=== PATIENT | male | born 1965 | race Caucasian/White ===

== ENCOUNTER 2016-11-12 08:19 | Observation (INO) ==
[2016-11-12] MEDS ORDERED: Aspirin 81 MG TAB.CHEW PO STA (08:27)
--- NOTE | 2016-11-12 08:29 | Emergency Department Note ---
Disposition Clinical Impression: Chest pain Qualifiers: Chest pain type: unspecified Qualified Code(s): R07.9 - Chest pain, unspecified Disposition: Admitted As Inpatient Condition: Undetermined Referrals: NO,PCP [Non-Partnered Physician] - Forms: ED Satisfaction Letter Time of Disposition: 09:29 Chest Pain HPI - General Chief Complaint: ED Chest Pain Stated Complaint: Chest Pain Time Seen by Provider: 11/12/16 08:21 Source: patient Mode of arrival: ambulatory Limitations: no limitations Vital Signs Reviewed: Yes Nursing Notes Reviewed: Yes - History of Present Illness HPI Narrative: 51-year-old male with history of hyperlipidemia, smoking history, family history of [place], arrives [facility] emergency department complaining of left-sided chest pain without radiation that began roughly 4:30 this morning. The patient states he had mild dyspnea associated with it. The patient states he did not think much of it but the pain had continued. The patient decided to come into the emergency department for further evaluation. The patient denies any previous history of cardiac disease, previous stent or catheterization, previous stress test. The patient states that he has been taking his atorvastatin as prescribed. The patient denies any other complaints at this time including abdominal pain, nausea, vomiting, fever, chills, unilateral leg swelling, recent surgeries, recent immobilizations. Pt complaint: chest pain Onset (ago): hour(s) (4) Time: 04:30 Duration: intermittent Onset: during rest Pain Location: left chest Severity: moderate Severity scale (1-10): 6 Quality: tightness Pain Radiation: none Improves with: nothing Worsens with: nothing Associated symptoms: Reports: dyspnea Treatments prior to arrival chest pain: none - Related Data On Oral Contraceptives: No Home Medications Medication Instructions Recorded Confirmed Lansoprazole [Prevacid] 30 mg PO DAILY 01/31/16 11/12/16 OxyCODONE/APAP 5/325 [Percocet 1 tab PO Q6HR PRN 01/31/16 11/12/16 5/325 MG] Simvastatin [Zocor] 40 mg PO DAILY 01/31/16 11/12/16 Ubidecarenone/Vit E Acetate [Co 100 mg PO DAILY 11/12/16 11/12/16 Q-10 100 mg Softgel] Vitamin B Complex Vit C No.4 1 tab PO DAILY 06/19/17 06/19/17 [Super B Complex] Allergies Allergy/AdvReac Type Severity Reaction Status Date / Time No Known Allergies Allergy Verified 11/12/16 08:33 All systems ED: reviewed and negative except as stated. Constitutional: Denies: fever, chills, weakness, weight change Cardiovascular: Reports: chest pain. Denies: palpitations, dyspnea on exertion , edema, syncope Respiratory: Reports: dyspnea. Denies: cough, wheezes, hemoptysis, stridor, sputum production Gastrointestinal: Denies: abdominal pain, nausea, vomiting, diarrhea, constipation, hematemesis, melena, hematochezia Musculoskeletal: Denies: back pain, neck pain, arthralgia, myalgia Integumentary: Denies: rash, abrasion, lesions Neurological: Denies: headache, weakness, numbness, paresthesias, confusion, abnormal gait, vertigo Chest Pain PMH - Past Medical History Medical history: Reports: arthritis (Osteoarthritis-knees), GERD, hyperlipidemia , thyroid disease (Hyperthyroidism), other (Tobacco Use Disorder; Impotence; Chronic Back Pain; Peripheral Vascular Disease; Blood clot in brain 1987; Hyperhydrosis) Surgical history: Reports: non-contributory Psychiatric history: Reports: depression, prior suicide attempt, other (Alcohol Abuse; Marijuana use) - Social History Smoking Status: Current every day smoker Alcohol use: Reports: none Drug use: Reports: unknown Physical Exam - General Limitations: no limitations General appearance: alert, in no apparent distress - Chest Chest inspection: Present: normal inspection, symmetric chest wall rise - Respiratory Respiratory exam: Present: normal lung sounds bilaterally - Cardiovascular Cardiovascular exam: Present: regular rate, normal rhythm, normal heart sounds - Abdominal Exam Abdominal exam: Present: soft, Non-Tender. Absent: tenderness, distention, guarding, rebound, rigidity - Extremities Exam Extremities exam: Present: normal inspection, full ROM. Absent: tenderness, pedal edema - Back Exam Back exam: Present: normal inspection, full ROM. Absent: tenderness - Neurological Exam Neurological exam: Present: alert, oriented X3 - Skin Skin exam: Present: warm, dry, intact, normal color Course Vital Signs Temperature 98.3 F 11/12/16 08:22 Pulse Rate 84 11/12/16 08:22 Respiratory Rate 18 11/12/16 08:22 Blood Pressure 134/87 11/12/16 08:22 O2 Sat by Pulse Oximetry 96 11/12/16 08:22 Temperature 98.3 F 11/12/16 08:22 Pulse Rate 71 11/12/16 09:24 Respiratory Rate 16 11/12/16 09:24 Blood Pressure 106/64 11/12/16 09:24 O2 Sat by Pulse Oximetry 98 11/12/16 09:24 Oxygen Delivery Oxygen Delivery Room Air Chest Pain - MDM Narrative Medical decision making narrative: I examined this patient and my medical decision-making was reviewed with the [facility] [employer]/PA/Advanced Practice Nurse/Resident Physician. I agree with the documented findings, disposition and treatment plan as described except to the extent set forth below. Patient was seen and evaluated by Dr. Silveira and myself , I agree with his evaluation and management plan, supervise care the patient had stated. Patient started having chest pain about 4:30 this morning that woke him up. Left-sided no radiation. Multiple risk factors for heart disease but as far as he knows he has never had coronary disease in the past. Rest see if we can make him more comfortable, a cardiac workup and most likely admission. He is in agreement with this plan. Chest X-Ray 11/12/16 08:26 IMPRESSION: No acute process. D/ / Dottie Calvillo MD / Dottie Calvillo MD Interpreting Provider: Dottie Calvillo MD 0904: Workup here in the emergency department demonstrates no acute process. Given the patient's age and medical history a combined with the fact that he never has received any stress test or cardiac workup we will admit the patient to the hospitalist for further troponin trending as well as likely stress test. The patient does have a heart score 3 but given the patient's previous medical history and lack of workup we will continue along the admission pathway. Patient agrees to the plan. 0908 hrs.: Planning on bring him into the hospital and for further workup. He is in agreement with plan. 0929: Accepted by Dr. Merchant. - Medical Records Medical records reviewed: Yes I reviewed the patient's medical records. - Lab Data Lab results reviewed: Yes I reviewed the patient's lab results. Result diagrams: 11/12/16 08:30 11/12/16 08:30 Lab Results 11/12/16 11/12/1617 Range/Units 08:30 08:30 08:30 WBC 8.5 (4.3-11.1) K/mcL RBC 5.58 H (4.19-5.50) M/mcL Hgb 16.2 (12.9-16.9) g/dL Hct 48.8 (37.5-50.1) % MCV 87.5 (83.0-100.0) fL MCH 29.0 (28.0-33.3) pg MCHC 33.2 (31.6-35.5) g/dL RDW 12.7 (11.5-14.5) % Plt Count 248 (140-400) K/mcL MPV 10.5 (9.4-12.4) fL Immature Gran % 0.4 (0-4) % Seg Neutrophils % 54.0 % Lymphocytes % 38.0 % Monocytes % 4.4 % Eosinophils % 2.8 % Basophils % 0.4 % Neutrophils # 4.6 (1.6-8.9) K/mcL Lymphocytes # 3.2 (0.6-4.6) K/mcL Monocytes # 0.4 (0.0-1.3) K/mcL Eosinophils # 0.2 (0.0-0.6) K/mcL Basophils # 0.0 (0.0-0.2) K/mcL Immature Plt Fraction 6.8 H (1.1-6.1) % Sodium 141 (136-145) mEq/L Potassium 4.3 (3.5-4.5) mEq/L Chloride 106 (98-109) mEq/L Carbon Dioxide 27 (19-29) mEq/L BUN 8 (8-26) mg/dL Creatinine 0.83 (0.72-1.25) mg/dL Est GFR ( Amer) > 60 (> 60) Est GFR (Non-Af Amer) > 60 (> 60) BUN/Creatinine Ratio 10 (6-26) Glucose 125 H (70-99) mg/dL Calculated Osmolality 292 (280-300) Calcium 9.8 (8.6-10.8) mg/dL Troponin I 0.00 (0-0.03) ng/mL - Radiology Data Radiology results reviewed: Yes I reviewed the patient's radiology results. - EKG Data EKG attestation: Yes I reviewed and interpreted this EKG. EKG results narrative: Heart rate 84 bpm. [place] interval 153 ms. QTc 383 ms. Normal axis. Normal sinus rhythm. No ST elevation or ST depression noted. EKG similar to EKG from 06/13/2010. No acute changes noted. Heart Score - Score History: Moderately Suspicious EKG: Normal Age: 45-65 Risk Factors: 1-2 risk factors Troponin: Less than normal limit HEART Score Total: 3
[2016-11-12] MEDS: Nitroglycerin 0.4 MG TAB.SUBL SL PRN ×3 (08:36→08:48)
[2016-11-12 08:39] LABS: Basophils % 0.4 %; Eosinophils # 0.2 K/mcL (0.0-0.6); Eosinophils % 2.8 %; Hematocrit 48.8 % (37.5-50.1); Hemoglobin 16.2 g/dL (12.9-16.9); Immature Granulocytes % 0.4 % (0-4); Immature Platelets 6.8 % (1.1-6.1); Lymphocytes # 3.2 K/mcL (0.6-4.6); Mean Corpuscular HGB Conc 33.2 g/dL (31.6-35.5); Mean Corpuscular Volume 87.5 fL (83.0-100.0); Mean Platelet Volume 10.5 fL (9.4-12.4); Monocytes # 0.4 K/mcL (0.0-1.3); Monocytes % 4.4 %; Neutrophils # 4.6 K/mcL (1.6-8.9); Platelet Count 248 K/mcL (140-400); Red Blood Count 5.58 M/mcL (4.19-5.50); Red Cell Distribution Width 12.7 % (11.5-14.5)
[2016-11-12 08:55] LABS: BUN/Creatinine Ratio 10 (6-26); Blood Urea Nitrogen 8 mg/dL (8-26); Calcium 9.8 mg/dL (8.6-10.8); Carbon Dioxide 27 mEq/L (19-29); Chloride 106 mEq/L (98-109); Glucose 125 mg/dL (70-99); Osmolality,Calculated 292 (280-300); Potassium 4.3 mEq/L (3.5-4.5); Sodium 141 mEq/L (136-145); eGFR For African Americans > 60 (> 60); eGFR For Non-African Americans > 60 (> 60)
[2016-11-12] MEDS ORDERED: *HR* OxyCODONE/APAP 5/325 TABLET PO PRN (12:55)
[2016-11-12] MEDS ORDERED: Naloxone 0.4 MG/ML INJ IVP PRN (12:57)
[2016-11-12] MEDS ORDERED: Acetaminophen 325 MG TABLET PO PRN (12:57)
[2016-11-12] MEDS ORDERED: Ondansetron 4 MG/2 ML VIAL IVP PRN (12:57)
--- NOTE | 2016-11-12 19:50 | Internal Med History&Physical ---
Date of Encounter: 11/12/16 Time of Encounter: 14:00 Assessment and Plan (1) Dyslipidemia Current visit: Yes Status: Acute Continue with Lipitor. Cardiac diet. Check lipid panel in the morning. (2) Precordial chest pain Current visit: Yes Status: Acute Patient reports chest pain with typical features, his pain has completely resolved now. He has been chest pain-free since admission. We will monitor on telemetry, trend troponin. Obtain echocardiogram. If he rules out for ACS we will obtain stress test in the morning. (3) Tobacco abuse Current visit: Yes Status: Acute I have advised smoking cessation and provided counseling. Internal Medicine - H&P: HPI Chief complaint: Chest pain Admitted From: Emergency Dept Plans for Post Hospital Care: Home History of present illness: Mr. Figueroa is a 51 year old male with past medical history significant for hyperlipidemia and tobacco abuse who presented to the hospital for evaluation of chest pain which started at 4:00 in the morning, woke him up from sleep, was located in the precordial area, severe in intensity and felt like pressure. It lasted until he came to the hospital and he received nitroglycerin which helped relieve the pain. He reports associated mild shortness of breath. A 10 point review of systems was negative. Family history positive for premature coronary artery disease in the patient's father Past Med Surg Social Fam HX - Past Medical History Medical history: arthritis (Osteoarthritis-knees), GERD, hyperlipidemia, thyroid disease (Hyperthyroidism), other (Tobacco Use Disorder; Impotence; Chronic Back Pain; Peripheral Vascular Disease; Blood clot in brain 1987; Hyperhydrosis) Psychiatric history: depression, prior suicide attempt, other (Alcohol Abuse; Marijuana use) - Past Surgical History Surgical History: non-contributory - Social History Smoking Status: Current every day smoker Packs per day: 1 Smokeless Tobacco Status: No Alcohol use: none Drug use: unknown Internal Medicine - H&P: Meds Lansoprazole [Prevacid] 30 mg PO DAILY 01/31/16 [History] OxyCODONE/APAP 5/325 [Percocet 5/325 MG] 1 tab PO Q6HR PRN 01/31/16 [History] Simvastatin [Zocor] 40 mg PO DAILY 01/31/16 [History] Ubidecarenone/Vit E Acetate [Co Q-10 100 mg Softgel] 100 mg PO DAILY 11/12/16 [ History] Vitamin B Complex Vit C No.4 [Super B Complex] 1 tab PO DAILY 11/12/16 [History] Allergies No Known Allergies Allergy (Verified 11/12/16 08:33) All Systems PM: A 10-system review of systems was performed and is negative for pertinent findings except as documented above in the HPI. - Constitutional Vitals: Temp Pulse Resp BP Pulse Ox 97.9 F 64 15 100/60 95 11/12/16 19:33 11/12/16 19:33 11/12/16 19:33 11/12/16 19:33 11/12/16 19:33 General appearance: Present: A&O X 3 - Eye Eye exam: Present: PERRL, conjuntiva pink, sclera anicteric Pupils: Present: PERRL - Respiratory Respiratory exam: Present: CTAB. Absent: accessory muscle use, rales, rhonchi, wheezes - Cardiovascular Cardiovascular exam: Present: RRR, +S1, +S2. Absent: diastolic murmur, gallop, rubs, systolic murmur - GI/Abdominal GI/Abdominal exam: Present: normal bowel sounds, soft, no peritoneal signs. Absent: distended, tenderness - Extremities Exam Extremities exam: Present: warm, radial pulses palpable and symetrical. Absent : calf tenderness, cyanotic, pedal edema - Neurological Exam Neurological exam: Present: CN II-XII intact, oriented X3, no focal deficits. Absent: pronater drift, facial droop, speech deficit - Skin Skin exam: Present: dry, intact Internal Med - H&P Results - Labs CBC & Chem 7: 11/12/16 08:30 11/12/16 08:30 Labs: Cardiac Enzymes 11/12/16 Range/Units 14:53 Troponin I 0.00 (0-0.03) ng/mL - EKG Data -: EKG Interpreted by Myself EKG shows normal: sinus rhythm
[2016-11-13 04:27] LABS: Basophils % 0.4 %; Eosinophils # 0.3 K/mcL (0.0-0.6); Eosinophils % 3.9 %; Hematocrit 46.6 % (37.5-50.1); Hemoglobin 15.1 g/dL (12.9-16.9); Immature Granulocytes % 0.2 % (0-4); Lymphocytes # 3.3 K/mcL (0.6-4.6); Lymphocytes % 38.6 %; Mean Corpuscular HGB Conc 32.4 g/dL (31.6-35.5); Mean Corpuscular Hemoglobin 28.6 pg (28.0-33.3); Mean Corpuscular Volume 88.3 fL (83.0-100.0); Monocytes # 0.5 K/mcL (0.0-1.3); Monocytes % 5.6 %; Neutrophils # 4.3 K/mcL (1.6-8.9); Platelet Count 240 K/mcL (140-400); Red Blood Count 5.28 M/mcL (4.19-5.50); Segmented Neutrophils % 51.3 %
[2016-11-13 04:49] LABS: BUN/Creatinine Ratio 12 (6-26); Blood Urea Nitrogen 10 mg/dL (8-26); Calcium 9.1 mg/dL (8.6-10.8); Carbon Dioxide 28 mEq/L (19-29); Chloride 105 mEq/L (98-109); Chol/HDL Ratio 6.1 (0-4.9); Cholesterol 212 mg/dL (< 200); Glucose 102 mg/dL (70-99); HDL Cholesterol 35 mg/dL (40-59); LDL Cholesterol,Calculated 126 mg/dL (0-99); Magnesium 2.1 mg/dL (1.6-2.6); Osmolality,Calculated 287 (280-300); Potassium 4.3 mEq/L (3.5-4.5); Sodium 139 mEq/L (136-145); Triglycerides 254 mg/dL (< 150); eGFR For African Americans > 60 (> 60); eGFR For Non-African Americans > 60 (> 60)
[2016-11-13] MEDS ORDERED: Regadenoson 0.4 MG/5 ML SYRINGE IVP ONE (06:22)
[2016-11-13 11:41] VITALS: BP 118/70
--- NOTE | 2016-11-13 13:25 | Nuclear Medicine Stress Report ---
Exercise Nuclear Stress Name: Harsha Figueroa Date of Study: 11/13/2016 Date: 1965 Ht: 71.0 in Medical Record#: [id number] Age: 51 Wt: 207.0 lb Gender: Male Order #: [id number] Location: [facility] IP Room: [facility] Supervising Provider: Darren Montanez CNP Reading Physician: Deonte Gustafson MD, [facility] Ordering Physician: Rohini Martinez CNP Primary Care Physician: Rizwan Posey DO Stress Technologist: Saul Miller, [employer], [facility] Portainer Operator: Jalen Camarillo Indications: Chest Pain Impression: The exercise capacity was good. Exercise ECG is negative for ischemia. Gated LVEF > 70%. Perfusion imaging was negative for ischemia or infarct. History: Hypercholesteremia History of Smoking Stress Test Summary: Stress Test Type: Treadmill Protocol: Archie Baseline Information: Initial Heart Rate: 82 Blood Pressure: 112/82 Stress Information: Stress Time: 11 min 12 sec Test Terminated Due to (primary): Dyspnea Maximum Blood Pressure: 148/72 Maximum Heart Rate: 145 Percent Maximum Heart Rate Achieved: 85 Double Product: 14838 METS Reached: 12.8 Symptoms: Shortness of breath, Fatigue Nuclear Summary: SPECT myocardial perfusion imaging using Tc99m Sestamibi given intravenously was performed at rest and following cardiac stress testing. The resting images were obtained following initial dose of 11.8 mCi. Following stress an additional dose of 34.3 mCi was given at peak exercise or 30 seconds post regadenoson infusion. Findings: Stress Note * Resting ECG demonstrated normal sinus rhythm. * No baseline arrhythmias were noted. * The exercise capacity was good. * Patient had no chest pain during stress. * No arrhythmias were noted during stress. * Exercise ECG is negative for ischemia. Hemodynamic responses * Normal hemodynamic responses to exercise. Study Quality * Study quality is average. Gated EF > 70% * Gated LVEF > 70%. Left Ventricle * The left ventricle is not dilated. * Normal Segmental Perfusion in rest. * Normal segmental perfusion in stress. TID * No evidence of transient ischemic dilatation. Updated by Deonte Gustafson MD, [facility] on 11/13/2016 1:20:05 PM electronically signed on 11/13/2016 1:20:28 PM with status of Final
--- NOTE | 2016-11-13 13:58 | Discharge Summary ---
Date of Encounter: 11/13/16 Time of Encounter: 09:00 - Discharge Diagnosis (1) Chest pain Priority: Primary Status: Acute Comments: Patient reports substernal chest pressure that awakened him at 4 AM yesterday morning. He said it continued until he arrived at the emergency room is giving nitroglycerin, states that it lasted about 4 hours. He denies any nausea, vomiting, diaphoresis, radiation. He said that it was constant. He denies shortness of breath. He has not had chest pain since he was in the emergency department. Troponins were negative 3. Stress test today showed gated LVEF greater than 70% and perfusion imaging was negative for ischemia or infarct. Patient also had an echocardiogram today showed normal systolic function with LVEF of 60-65%, normal diastolic function and normal RV size and function. Patient has risk factors of smoking and hyperlipidemia. He is not interested in smoking cessation, and is on the highest recommended dose of simvastatin. Patient will follow up with primary care. Qualifiers: Chest pain type: unspecified Qualified Code(s): R07.9 - Chest pain, unspecified (2) Dyslipidemia Priority: Secondary Status: Chronic Comments: Chronic. Continue with simvastatin. Follow-up with primary care for further evaluation. He has not interested in lifestyle changes. (3) Precordial chest pain Priority: Secondary Status: Acute Comments: Plan as above (4) Tobacco abuse Priority: Secondary Status: Chronic Comments: Patient was not interested in discussing smoking cessation tools or methods. He says he will quit when he is ready. - Discharge Medications Home Medications: Lansoprazole [Prevacid] 30 mg PO DAILY 01/31/16 [History] OxyCODONE/APAP 5/325 [Percocet 5/325 MG] 1 tab PO Q6HR PRN 01/31/16 [History] Simvastatin [Zocor] 40 mg PO DAILY 01/31/16 [History] Ubidecarenone/Vit E Acetate [Co Q-10 100 mg Softgel] 100 mg PO DAILY 11/12/16 [ History] Vitamin B Complex Vit C No.4 [Super B Complex] 1 tab PO DAILY 11/12/16 [History] Allergies/Adverse Reactions: Allergies No Known Allergies Allergy (Verified 11/12/16 08:33) Procedures/tests Complete & Pending: Procedures Performed prior 72 hours Category Date Time Status NM aubree perf SPECT multi [NM] Routine Exams 11/12/16 18:08 Taken EV echocardiogram Routine Y 11/13/16 18:07 Completed SP exercise nuclear stress Routine Y 11/12/16 18:07 Completed Date of admission: 11/12/16 09:36 Primary care physician: Lisa Musa Discharging clinician: Erika Davis Anticipated date of discharge: 11/13/16 - Patient Status Disposition: Home, Self-Care Condition: Good Functional capacity at discharge: independent ambulation Overall status at discharge: patient is back to baseline - Discharge Instructions Follow Up With: Rizwan Posey, [Primary Care Provider] - 11/19/16 10:00 am Additional Instructions: Resume your normal home medications Please follow-up with your primary care physician regarding your lipid panel. Consider smoking cessation. If you change your mind prior to discharge I will be happy to write you a prescription. Please return to the emergency department if you have any new or concerning symptoms, or if your chest pain returns. - Diet and Activity Activity: increase activity as tolerated Diet: advance to your usual diet Interval History: Mr. Figueroa is a 51-year-old male with prior history of tobacco abuse and hyperlipidemia. Patient reports substernal chest pressure without radiation, shortness of breath, nausea, vomiting that awakened him from sleep at 4 AM yesterday. He said it was constant and that it lasted until he was given nitroglycerin in the emergency department. He said that timeframe is about 4 hours. He has not had any chest pain since that time. Pain is not reproducible with palpation or inspiration. Echocardiogram done today showed normal systolic function, LVEF 60-65%, normal diastolic dysfunction and normal RV size and function. There is no evidence of pulmonary hypertension or valvular dysfunction. He also had a stress test today with the gated LVEF of greater than 70%. Perfusion imaging was negative for ischemia or infarct. His chest x-ray was negative for any acute processes. Troponin was negative 3. Patient is not interested in smoking cessation. He says he will stop smoking when he is ready. His lipid panel is significantly elevated. He was fasting. Patient reports that he had labs done 3 months ago and "everything was fine". There has been a significant change in labs. Continued follow-up and repeat lab is recommended. Patient has been pain-free. He is anxious to go. His labs and vital signs have been within normal limits, other than lipid panel. Patient is stable and ready for discharge. Hospital course: Mr. Figueroa is a 51 year old male - Time Spent with Patient Total time spent providing and/or coordinating discharge services: Less than 30 minutes - Constitutional Vitals: Temp Pulse Resp BP Pulse Ox 98.0 F 63 15 118/70 97 11/13/16 11:40 11/13/16 11:40 11/13/16 11:40 11/13/16 11:40 11/13/16 11:40 General appearance: Present: A&O X 3, pleasant, no acute distress, answers questions appropriately - Head Head exam: Present: normal inspection - Eye Eye exam: Present: EOMI, normal appearance, conjuntiva pink - ENT ENT exam: Present: mucous membranes moist, normal exam - Neck Neck exam general surgery: Present: normal inspection. Absent: lymphadenopathy , tenderness - Respiratory Respiratory exam: Present: CTAB. Absent: accessory muscle use, chest wall tenderness, rales, respiratory distress, rhonchi, stridor, wheezes - GI/Abdominal GI/Abdominal exam: Present: normal bowel sounds. Absent: distended, hepatomegaly, tenderness - Extremities Exam Extremities exam: Present: normal capillary refill, normal inspection, warm, radial pulses palpable and symetrical. Absent: pedal edema, tenderness - Neurological Exam Neurological exam: Present: alert, oriented X3, no focal deficits. Absent: facial droop, speech deficit - Skin Skin exam: Present: dry, intact, normal color, warm
--- NOTE | 2016-11-16 15:06 | Electrocardiograph Report ---
[address] [address] Test Date: 2016-11-12 Pat Name: Harsha Figueroa Department: 105 Room: 3B23 Gender: M Print Color Operator: : 1965 Requested By: Sajan Rosenthal Order Number: [id number] Reading MD: Enma Botello Measurements Intervals Placida Rate: 84 P: 46 NM: 153 QRS: 38 QRSD: 86 T: 56 QT: 342 QTc: 383 Interpretive Statements SINUS RHYTHM Electronically Signed On 11-16-2016 15:04:49 EDT by Enma Botello
== END 2016-11-13 16:22 | disposition home or self-care (01) ==
LOC: 3BNU 08:19 → EMEROO 08:19 → 3BNU 10:07
PROVIDERS: ADMIT Internal Medicine; ATTEND Nurse Practitioner Family